=== PATIENT | male | born 1970 | race African-American/Black ===

== ENCOUNTER 2025-05-22 05:19 | Emergency (ER) | payer SELFPAY ==
[2025-05-22 05:58] LABS: #Basophils 0.0 thou/uL (0.0-0.2); #Eosinophils 0.3 thou/uL (0.0-0.7); #Lymphocytes 3.0 thou/uL (1.20-3.40); #Monocytes 0.7 thou/uL (0.11-0.59); #Neutrophils 4.1 thou/uL (1.40-6.50); %Basophils 0.6 % (0.0-1.0); %Eosinophils 3.8 % (0.0-10.0); %Lymphocytes 36.8 % (21.0-51.0); %Monocytes 8.0 % (0.0-10.0); %Neutrophils 50.7 % (42.0-75.0); Hematocrit 43.4 % (42.0-52.0); Hemoglobin 15.6 g/dL (14.0-18.0); Mean Corpuscular Hemoglobin 31.2 pg (27.0-31.0); Mean Corpuscular Volume 86.6 fl (78.0-98.0); Platelet Count 303 10x3/uL (130-400); Red Blood Cell (RBC) Count 5.01 mill/uL (4.70-6.10); White Blood Cell (WBC) Count 8.1 10x3/uL (4.8-10.8)
[2025-05-22] MEDS ORDERED: Tetracaine 0.5% PF 4 ML BOT ONE (05:59)
[2025-05-22 06:02] LABS: INR-International Normal Ratio 1.0; PTT 30.2 sec (22.9-36.1); Prothrombin Time 13.1 sec (12.0-14.7)
[2025-05-22] MEDS ORDERED: Aspirin Chewable 81 MG TAB ONE (06:04)
[2025-05-22 06:12] LABS: ALT (SGPT) 11 U/L (Less than 45); AST (SGOT) 18 U/L (11-34); Albumin 3.0 g/dL (3.1-4.5); Alkaline Phosphatase 108 U/L (40-110); Anion Gap 12 mmol/L (10-20); BUN (Urea Nitrogen) 9 mg/dL (8.4-25.7); Bilirubin, Total 0.5 mg/dL (0.3-1.2); Calc. Creatinine Clearance 0 mL/min (70-130); Calcium 8.5 mg/dL (7.8-10.44); Carbon Dioxide 27 mmol/L (22-29); Chloride 102 mmol/L (98-107); Globulin 3.5 g/dL (2.4-3.5); Glucose 268 mg/dL (70-105); Potassium 4.0 mmol/L (3.5-5.1); Sodium 137 mmol/L (136-145)
[2025-05-22 06:41] LABS: Troponin I Less than 0.010 ng/mL (< 0.028)
[2025-05-22 07:34] LABS: Glucose, Urine (Dipstick) 500 mg/dL (Negative); Leukocyte Negative (Negative); Protein, Urine (Dipstick) > or equal to 300 mg/dL (Neg-Trace); Specific Gravity, Urine 1.020 (1.005-1.030)
[2025-05-22 07:37] LABS: Bacteria/HPF None Seen HPF (None Seen); CAUTI Indications for Culture Dysuria,urgency,freq; RBC/HPF None Seen HPF (0-3); WBC/HPF None Seen HPF (0-3)
[2025-05-22 07:38] LABS: Urine Culture Reflex No No
[2025-05-22] MEDS ORDERED: Lisinopril 10 MG TAB ONE (07:50)
[2025-05-22] MEDS ORDERED: Iopamidol 370 76% 100 ML VIAL ONE (09:00)
== END 2025-05-22 08:25 | disposition short-term general hospital (02) ==
LOC: NAV ERS 05:19
DX: H53.9 Unspecified visual disturbance (principal); R42 Dizziness and giddiness; I10 Essential (primary) hypertension; R73.9 Hyperglycemia, unspecified; Z87.891 Personal history of nicotine dependence
CPT/HCPCS: 36416; 70450; 70496; 70498; 80053; 81001; 83036; 84484; 85025; 85610; 85730; 93005; 94760; 96361; 96374; 96376; J1815; J7030; Q9967